=== PATIENT | male | born 2000 ===

== ENCOUNTER 2020-03-23 18:08 | Emergency (ER) | payer OTHER ==
--- NOTE | 2020-03-23 19:01 | CT ---
CT head noncontrast HISTORY: Headache. FINDINGS: There is no evidence of acute intracranial hemorrhage or infarct. The ventricles appear nor mal in size, shape and position. Lobular arachnoid cyst is noted at the paramedial left posterior fossa. Visualized paranasal sinuses remain well aerated. IMPRESSION : No acute intracranial abnormalities are demonstrated.
[2020-03-23 19:07] LABS: INR-International Normal Ratio 1.1; PTT 27.8 sec (22.9-36.1); Prothrombin Time 14.2 sec (12.0-14.7)
--- NOTE | 2020-03-23 19:09 | CT ---
CT cervical spine noncontrast HISTORY: Fall. Neck injury. FINDINGS: Vertebral body heights and alignment are maintained. Cervicothoracic junction is intact. No acute fracture or dislocation are apparent. IMPRESSION : No abnormalities are demonstrated.
--- NOTE | 2020-03-23 19:37 | RAD ---
PA CHEST AND LEFT RIBS FIVE VIEWS: 03/23/20 HISTORY: Rib injury. Heart size and mediastinum are within normal limits. The lungs appear clear of any infiltrates. There is tenting to the left hemidiaphragm. No rib fractures are visualized. IMPRESSION: No evidence of rib fracture. POS: [id number]
[2020-03-23] MEDS ORDERED: Warfarin Sodium 5 MG TAB PO SCH (19:45)
== END 2020-03-23 19:50 ==
LOC: NAV ERS 18:08
DX: S00.83XA Contusion of other part of head, initial encounter (principal); S29.9XXA Unspecified injury of thorax, initial encounter; D68.4 Acquired coagulation factor deficiency; F31.9 Bipolar disorder, unspecified; Z79.01 Long term (current) use of anticoagulants; Y04.8XXA Assault by other bodily force, initial encounter
CPT/HCPCS: 36415; 70450; 72125; 85610; 85730